=== PATIENT | male | born 1990 | race Caucasian/White ===

== ENCOUNTER → 2020-03-11 10:44 | Outpatient (CLI) | payer OTHER, SELFPAY ==
--- NOTE | 2020-03-11 10:59 | DI.RAD.S_ITS ---
PROCEDURE: XR FEMUR LT MIN 2V INDICATIONS: TRAUMA TECHNIQUE: 4 views of the femur were acquired. COMPARISON: None. FINDINGS: Bones: No fractures or dislocations. No suspicious bony lesions. Soft tissues: No suspicious soft tissue calcifications or masses. IMPRESSION: No trauma found. Note: A metallic richards overlies the pelvis, unlikely to represent an ingested foreign body but please correlate clinically. Dictated by: Rohit Bennett M.D. on 03/11/2020 at 11:43 Approved by: Rohit Bennett M.D. on 03/11/2020 at 11:50
--- NOTE | 2020-03-11 10:59 | DI.RAD.S_ITS ---
PROCEDURE: XR FINGER RT MIN 2V INDICATIONS: TRAUMA TECHNIQUE: AP hand, 2 views of the right 4th finger(s) acquired. COMPARISON: None. FINDINGS: Bones: There is a mildly displaced small, curvilinear avulsion fracture fragment involving the radial side of the volar base of the right 4th finger middle phalanx. There is focal soft tissue swelling centered at the 4th proximal interphalangeal joint. Remainder of the visualized osseous structures appear intact. No suspicious bony lesions. Soft tissues: No suspicious soft tissue calcifications. IMPRESSION: Mildly displaced avulsion fracture involving the volar base of the right 4th finger middle phalanx. Dictated by: Dom Cordova M.D. on 03/11/2020 at 12:32 Approved by: Dom Cordova M.D. on 03/11/2020 at 12:35
== END ==
PROVIDERS: PCP Family Medicine; Referring Provider Family Medicine; Visit Provider Family Medicine
DX: S62.624A Displaced fracture of middle phalanx of right ring finger, initial encounter for closed fracture (principal); S79.922A Unspecified injury of left thigh, initial encounter; W19.XXXA Unspecified fall, initial encounter
CPT/HCPCS: 73140; 73552

== ENCOUNTER → 2020-06-15 13:06 | Outpatient (ROUT) | payer OTHER, SELFPAY ==
[2020-06-15 14:37] LABS: COVID19 -Nasal RAPID Negative (Negative)
== END ==
PROVIDERS: PCP Family Medicine; Visit Provider Family Medicine
DX: Z20.828 Contact with and (suspected) exposure to other viral communicable diseases (principal)
CPT/HCPCS: 87635

== ENCOUNTER → 2020-12-09 17:35 | Outpatient (ROUT) | payer OTHER, SELFPAY ==
[2020-12-09 18:08] LABS: COVID19 -Nasal RAPID Negative (Negative)
== END ==
PROVIDERS: PCP Family Medicine; Visit Provider Family Medicine
DX: Z20.822 Contact with and (suspected) exposure to COVID-19 (principal)
CPT/HCPCS: 87635

== ENCOUNTER → 2020-12-14 12:23 | Outpatient (ROUT) | payer OTHER, SELFPAY ==
[2020-12-14 13:55] LABS: COVID19 -Nasal RAPID Negative (Negative)
== END ==
PROVIDERS: PCP Family Medicine; Visit Provider Family Medicine
DX: Z20.822 Contact with and (suspected) exposure to COVID-19 (principal)
CPT/HCPCS: 87635

== ENCOUNTER → 2022-11-28 15:34 | Outpatient (ROUT) | payer OTHER, SELFPAY ==
[2022-11-28 17:36] LABS: Urine N gonorrhoeae NOT DETECTED
[2022-11-28 17:38] LABS: Urine Chlamydia NOT DETECTED
== END ==
PROVIDERS: PCP Family Medicine; Visit Provider Family Medicine
DX: Z20.2 Contact with and (suspected) exposure to infections with a predominantly sexual mode of transmission (principal)
CPT/HCPCS: 87491; 87591

== ENCOUNTER → 2023-12-21 12:43 | Outpatient (CLI) | payer OTHER, SELFPAY ==
--- NOTE | 2023-12-21 12:48 | DI.RAD.S_ITS ---
PROCEDURE: XR RIBS RT MIN 3V W CXR 1V INDICATIONS: RIB PAIN S/P INJURY TECHNIQUE: 2 views of the ribs were acquired, along with a single view chest. COMPARISON: None. FINDINGS: Surgical changes and devices: None. Bones and chest wall: No fractures or dislocations. No suspicious bony lesions. Overlying soft tissues appear unremarkable. Lungs and pleura: No pleural effusions or pneumothorax. Lungs appear clear. Mediastinum: Mediastinal contours appear normal. Heart size is normal. IMPRESSION: No displaced rib fracture or pneumothorax. Dictated by: Connor Whitt M.D. on 12/21/2023 at 16:54 Approved by: Connor Whitt M.D. on 12/21/2023 at 16:55
== END ==
LOC: RAD 12:46
PROVIDERS: PCP Family Medicine; Referring Provider Family Medicine; Visit Provider Family Medicine
DX: S29.9XXA Unspecified injury of thorax, initial encounter (principal); X58.XXXA Exposure to other specified factors, initial encounter
CPT/HCPCS: 71101